=== PATIENT | male | born 1975 | race Caucasian/White ===

== ENCOUNTER → 2018-07-04 | Outpatient (CLI) | payer OTHER ==
[~2018-07-04] MED LIST: METPRE4DP PO
[2018-07-04 08:32] LABS: Protein, Urine Quantitative 8.7 mg/dL (0.0-11.9)
== END | disposition home or self-care (01) ==
LOC: LAB EV 06:57
PROVIDERS: Internal Medicine Nephrology
DX: N18.3 Chronic kidney disease, stage 3 (moderate) (principal); D63.1 Anemia in chronic kidney disease; N25.81 Secondary hyperparathyroidism of renal origin; E55.9 Vitamin D deficiency, unspecified; E78.00 Pure hypercholesterolemia, unspecified; R76.9 Abnormal immunological finding in serum, unspecified; R94.5 Abnormal results of liver function studies; R94.6 Abnormal results of thyroid function studies
CPT/HCPCS: 82570; 84156

== ENCOUNTER → 2021-04-13 | Outpatient (CLI) | payer OTHER | LOC: LAB SHORT 11:10 → LAB 11:10 | DX: D48.5 Neoplasm of uncertain behavior of skin (principal); B07.9 Viral wart, unspecified | CPT/HCPCS: 88305 ==

== ENCOUNTER 2021-10-13 06:19 | Day surgery (SDC) | payer OTHER ==
[~2021-10-13] VITALS: Ht 188 cm; Wt 103.7 kg
[~2021-10-13 06:19] MED LIST changes: +MONT4; +PSEU120ER PO
[2021-10-13] MEDS ORDERED: METHI10 PO (06:55)
[2021-10-13] MEDS ORDERED: MULVITA PO (06:55)
--- NOTE | 2021-10-13 07:25 | NUR ---
10/13/21 0725 Heather Rothman PRP SENT.
== END 2021-10-13 09:49 | disposition home or self-care (01) ==
LOC: ORSCSDS 06:19
PROVIDERS: Orthopaedic Surgery
PROC: 0LN40ZZ Release Left Upper Arm Tendon, Open Approach (ICD-10-PCS; principal; 2021-10-13 07:30)
DX: M77.02 Medial epicondylitis, left elbow (principal); M65.80 Other synovitis and tenosynovitis, unspecified site; G47.33 Obstructive sleep apnea (adult) (pediatric); E05.00 Thyrotoxicosis with diffuse goiter without thyrotoxic crisis or storm
CPT/HCPCS: A9270; C1713; J1100; J1885; J2250; J2405; J2704; J2795; J3010; J7120